=== PATIENT | male | born 1950 | race Caucasian/White ===

== ENCOUNTER 2023-01-28 14:21 | Outpatient (CLI) | payer MEDICARE, BC ==
[2023-01-28 15:10] VITALS: BP 124/60
--- NOTE | 2023-01-28 15:10 | SLEEP CARE CONSULTATION ---
Information from patient questionnaire entered by Crsitobal Teixeira. I have reviewed and concur with the information entered by Cristobal Teixeira. This document represents the service I personally performed and the decisions made by me, Klaudia Pedroza ARNP. History of Present Illness Service Date and Time: 01/28/2023 1421 Reason for Visit: New patient, sleep apnea on CPAP therapy Chief Complaint: reports: Observed pauses in breathing, Other (TRANSFER ) Usual bedtime: 11PM Time it takes to fall asleep: 5MIN Snores at night: Yes Observed to quit breathing while asleep: Yes Sleeps alone due to snoring: No Number of times waking at night: 1-2 Reasons for waking at night: reports: Bathroom Toss, Turn, or Twitch while sleeping: Yes Recalls having dreams: Yes Usually gets out of bed at: 7AM Feels refreshed in the morning: Yes Morning headache: No Sleepy or fatigued during the day: No Ever fallen asleep while driving: No Takes day naps: No Dreams during day naps: No Prior sleep studies: Yes ([facility] ) Year and Where: 2019 Type of Sleep Study: Polysomnography Additional HPI information: CHARLEEN CERON was previously diagnosed to have mild, AHI 10.9, obstructive sleep apnea-hypopnea syndrome at [facility] in 2019 and comes in today to establish care for CPAP therapy. - Parasomnia Symptoms Ever been unable to move upon waking from sleep: No Walks in sleep: No Talks in sleep: No Ever acted out dreams in sleep: No Ever felt weak in the knees when startled or emotional: No Bothered by creepy, crawly, restless sensations in legs: No Problems with memory or concentration: Yes CPAP Compliance Data - Data Reviewed with Patient Average duration of nightly device use: 6 hours 56 minutes Compliance rate %: 100 (30/30 days used) Current pressure setting (cmH2O): 5-15 (median 8.1, avg 11.8, max 13.8) Average residual AHI: 10.2 Central apnea: 6.0 Obstructive apnea: 2.8 Compliance data discussion: He has a Resmed Airsense 10 CPAP machine setup on 05/2020. He has been getting his supplies from [employer], [employer]. He is using a full face mask, a Resmed Airfit F30i. Subjective Patient concerns: reports: dry mouth, nose, throat (dry mouth when oral venting on back). denies: aerophagia, mask discomfort, air blowing in eyes, mask leak noise, condensation in mask/hose, nasal congestion, epistaxis Observed to snore while using device: No Current pressure setting perceived as: comfortable On therapy, patient: reports: sleeping better, awakening more refreshed, being more awake and alert during the day, more rested overall. denies: drowsiness while driving Initial [place] Sleepiness Scale score: 7 (01/28/23) Past Medical History Past Medical History: reports: Other (ARTHEROSCLEROCIC HEART DISEASE- ASYMPTOMATIC ) Social History The patient's occupation is a RE. Patient is and lives in [place]. Have you smoked in the past 12 months: No Alcohol use: No Caffeine use: Yes Caffeine amount and frequency: 16-24OZS DAILY Family History Family history of sleep disordered breathing: No Family Hx Sleep Apnea: Other: Snoring (), Sleep apnea - Treated () Allergies and Home Medications Known drug allergies: No Drug allergies reviewed: Yes Home medication list reviewed: Yes (Rosuvastatin 20 mg daily; Aspirin 81 mg daily) Review of Systems Cardiovascular: denies: high blood pressure Gastrointestinal: denies: heartburn Urinary: reports: frequency, urgency Neurological: denies: headaches Psychiatric: denies: anxiety, depression Ear/Nose/Throat: denies: tonsillectomy Endocrine: reports: increased urination. denies: thyroid disease Physical Exam Vital signs obtained and entered by: CRISTOBAL Maldonado MA Blood Pressure: 124/60 (LEFT ARM) Cuff size: regular Heart Rate: 68 O2 Saturation: 97 Height: 5 ft 10 in Weight: 200 lb Body Mass Index: 28.7 BMI Classification: Overweight Neck circumference: 16 Heart: regular rate and rhythm Lungs: clear bilaterally Impression and Plan 1. Obstructive Sleep Apnea-Hypopnea Syndrome, mild, with good treatment compliance and good apnea control. On CPAP therapy, the patient has better sleep quality and is more rested overall. Patient's residual AHI is elevated with the bulk of events noted in central apneas. I will adjust his pressure settings to see if we can get a better control of his residual AHI. The patients pressure will be changed to autoCPAP 8-10 cmH20 for elevation of residual AHI. I will follow up with him in 1-2 months. Patient advised to contact me if pressure change is uncomfortable so that it can be adjusted. Goals for apnea control discussed. Patient's apnea severity and rationale for treatment to reduce apnea, improve sleep quality and reduce cardiovascular and cerebrovascular events was reviewed. I also reviewed the benefit of consistent device use of CPAP for cardiac disease. * Change auto CPAP pressure to 8-10 cmH2O * Update supplies * Notify me if snoring with mask or feeling that the pressure is too much or too little * Attempt to lose weight * Call this office if any problems using CPAP * Return for follow up in 1-2 months, or sooner if concerns arise Counseling Topics: Spare mask, Weight loss health impact Visit Type: In Office Time Spent with Patient (minutes): 36 Provider Statement: I spent 100% of the Face to Face Visit with the patient with greater than 50% spent counseling the patient and coordination of care.
== END 2023-01-28 14:22 | disposition home or self-care (01) ==
LOC: SC 14:21
PROVIDERS: ATTEND Nurse Practitioner Family
DX: G47.33 Obstructive sleep apnea (adult) (pediatric) (principal); E66.3 Overweight; Z68.28 Body mass index [BMI] 28.0-28.9, adult
CPT/HCPCS: 99203; G0463; 99212

== ENCOUNTER 2023-04-07 13:51 | Outpatient (CLI) | payer MEDICARE, BC ==
--- NOTE | 2023-04-07 14:07 | Sleep Patient Instructions ---
Sleep Center Visit Summary - Patient Visit Information Reason for Visit: Two month follow up for CPAP therapy - Patient Instructions Additional Instructions: You were here for follow up of CPAP therapy. You will be continued on CPAP therapy with pressure at 8-10 cmH2O. Please let us know if the pressure change is uncomfortable and we can make further adjustments of the pressure. Your machine will be serviced to determine cause of it shutting off during the night. You should follow up with sleep care in 3 months. You may contact us sooner for any questions or concerns. - Clinic Information Contact: [facility] [address] [place] [address] [email or web address] T: [phone]
[2023-04-07 14:28] VITALS: BP 108/60
--- NOTE | 2023-04-07 14:28 | SLEEP CARE CONSULTATION ---
Information from patient questionnaire entered by Cristobal Teixeira. I have reviewed and concur with the information entered by Cristobal Teixeira. This document represents the service I personally performed and the decisions made by , Klaudia Pedroza ARNP. History of Present Illness Service Date and Time: 04/07/2023 1351 Previous diagnosis: Mild, Obstructive Sleep Apnea-Hypopnea Syndrome AHI: 10.9 (in 2019) Reason for follow up: other (2 MONTH F/U) Equipment type: CPAP (RESMED Airsense 10; s/u 05/2020) Equipment obtained from: [employer] (getting supplies) Mask style: Full face Backup mask available: No (will keep old mask when replaced) Last cushion change: 1 month Prior sleep studies: Yes ([facility] ) and Where: 2019 Type of Sleep Study: Polysomnography HPI additional information: CHARLEEN CERON was diagnosed to have mild, AHI 10.9, obstructive sleep apnea- hypopnea syndrome and returned today for CPAP therapy two months follow-up. Sleep Study - Results Type of Sleep Study: Polysomnography Prior sleep studies: Yes ([facility] ) Year and Where: 2019 CPAP Compliance Data - Data Reviewed with Patient Average duration of nightly device use: 6 HRS 14 MIN Compliance rate %: 100 (02/05/23-04/05/23) Current pressure setting (cmH2O): 8-10 Average residual AHI: 6.8 Central apnea: 3.5 Obstructive apnea: 1.8 Average large leak: 8.9 L/min Subjective Patient concerns: denies: aerophagia, mask discomfort, air blowing in eyes, mask leak noise, condensation in mask/hose, nasal congestion, dry mouth, nose, throat, epistaxis Observed to snore while using device: No Current pressure setting perceived as: too low On therapy, patient: reports: sleeping better, awakening more refreshed, being more awake and alert during the day, more rested overall. denies: drowsiness while driving Initial [place] Sleepiness Scale score: 7 (01/28/23) Current [place] Sleepiness Scale score: 6 (04/07/23) Allergies and Home Medications Known drug allergies: No Drug allergies reviewed: Yes Home medication list reviewed: Yes (no changes) Allergy and home medication list: Allergies No Known Drug Allergies Allergy (Verified 04/06/23 09:26) Review of Systems Review of systems same as previous: Yes (restless legs occasionally reoccurred) Physical Exam Vital signs obtained and entered by: CRISTOBAL Maldonado MA Blood Pressure: 108/60 (LEFT ARM) Cuff size: regular Heart Rate: 62 O2 Saturation: 98 Height: 5 ft 10 in Weight: 195 lb Body Mass Index: 27.9 BMI Classification: Overweight Impression and Plan 1. Obstructive Sleep Apnea-Hypopnea Syndrome, mild, with good treatment compliance and fair apnea control with mild elevation of residual AHI. On CPAP therapy, the patient has better sleep quality and is more rested overall. His residual AHI includes 3.5 CA and 1.8 OA. He states he feels that occasionally the pressure is too low and would like the pressure increased. I explained to him that the AHI is better controlled at the lower pressure and he was okay with leaving it at current pressures. Patient advised to contact me if pressure is uncomfortable so that it can be adjusted. Goals for apnea control discussed. Patient also tells me that his CPAP will shut off during the night and he will wake up unable to breathe in mask. He states it just started doing this and he knows he did not turn it off. I will have the machine serviced to check on why it would be turning off on it's own. He voiced agreement with plan of care. Patient's apnea severity and rationale for treatment to reduce apnea, improve sleep quality and reduce cardiovascular and cerebrovascular events was reviewed. I also reviewed the benefit of consistent device use of CPAP for cardiac disease. 2. Overweight, unspecified. Currently patients BMI is 27.9. Obesity increases the risk of apnea, CPAP pressure requirements and overall health risks especially cardiovascular and diabetes. Thus patient is advised to lose weight. * Continue auto CPAP pressure at 8-10 cmH2O * Service Machine; shutting off during night on own * Notify me if snoring with mask or feeling that the pressure is too much or too little * Attempt to lose weight * Call this office if any problems using CPAP * Return for follow up in 3 months, or sooner if concerns arise Counseling Topics: Spare mask, Weight loss health impact Prescriptions: Other (machine servicing for turning off on own) Visit Type: In Office Time Spent with Patient (minutes): 20 Provider Statement: I spent 100% of the Face to Face Visit with the patient with greater than 50% spent counseling the patient and coordination of care.
== END 2023-04-07 13:52 | disposition home or self-care (01) ==
LOC: SC 13:51
PROVIDERS: ATTEND Nurse Practitioner Family
DX: G47.33 Obstructive sleep apnea (adult) (pediatric) (principal); E66.3 Overweight; Z68.27 Body mass index [BMI] 27.0-27.9, adult
CPT/HCPCS: 99213; G0463; 99212

== ENCOUNTER 2023-07-01 13:03 | Outpatient (CLI) | payer MEDICARE, BC ==
[2023-07-01 13:42] VITALS: BP 110/60; O2SAT 98
--- NOTE | 2023-07-01 13:43 | SLEEP CARE CONSULTATION ---
Information from patient questionnaire entered by Cristobal Teixeira. I have reviewed and concur with the information entered by Cristobal Teixeira. This document represents the service I personally performed and the decisions made by , Klaudia Pedroza ARNP. History of Present Illness Service Date and Time: 07/01/2023 1303 Previous diagnosis: Mild, Obstructive Sleep Apnea-Hypopnea Syndrome AHI: 10.9 (in 2019) Reason for follow up: three month (F/U) Equipment type: CPAP (RESMED Airsense 10 s/u 05/2020) Equipment obtained from: [employer] (getting supplies) Mask style: Full face Backup mask available: Yes (old mask) Last cushion change: last month Prior sleep studies: Yes ([facility] ) and Where: 2019 Type of Sleep Study: Polysomnography HPI additional information: CHARLEEN CERON was diagnosed to have mild, AHI 10.9, obstructive sleep apnea- hypopnea syndrome and returned today for CPAP therapy three month follow-up. Sleep Study - Results Type of Sleep Study: Polysomnography Prior sleep studies: Yes ([facility] ) Year and Where: 2019 CPAP Compliance Data - Data Reviewed with Patient Average duration of nightly device use: 5 HRS 53 MIN Compliance rate %: 99 (03/18/23-06/15/23; 90/90 days used) Current pressure setting (cmH2O): 8-10 Average residual AHI: 7.8 Central apnea: 3.3 Obstructive apnea: 2.5 Hypopnea: 1.2 Average large leak: 12.5 L/min Subjective Patient concerns: reports: other (pressure pulsating and unable to use CPAP ). denies: aerophagia, mask discomfort, air blowing in eyes, mask leak noise, condensation in mask/hose, nasal congestion, dry mouth, nose, throat, epistaxis Observed to snore while using device: No Current pressure setting perceived as: comfortable On therapy, patient: reports: sleeping better, awakening more refreshed, being more awake and alert during the day, more rested overall. denies: drowsiness while driving Initial [place] Sleepiness Scale score: 7 (01/28/23) Current [place] Sleepiness Scale score: 7 (07/01/23) Allergies and Home Medications Known drug allergies: No Drug allergies reviewed: Yes Home medication list reviewed: Yes (no changes) Allergy and home medication list: Allergies No Known Drug Allergies Allergy (Verified 06/30/23 09:22) Review of Systems Review of systems same as previous: Yes (no changes) Physical Exam Vital signs obtained and entered by: CRISTOBAL Maldonado MA Blood Pressure: 110/60 (LEFT ARM) Cuff size: regular Heart Rate: 85 O2 Saturation: 98 Height: 5 ft 10 in Weight: 192 lb 6.4 oz Body Mass Index: 27.6 BMI Classification: Overweight Impression and Plan 1. Obstructive Sleep Apnea-Hypopnea Syndrome, mild, with good treatment complia nce and fair apnea control with elevated residual AHI. On CPAP therapy, the patient has better sleep quality and is more rested overall. He states he has not been able to use his machine since getting back from vacation. It was working fine on vacation but when he plugged it in at home the pressure feels like it is pulsating and it is very uncomfortable and he is unable to wear the mask. This has only happened within the last 2 nights. I will have it serviced to see if there is a problem with the machine through his [employer] company. Patient continues to have elevated residual AHI, central index at 3.3, hypopnea 1.2 and obstructive index at 2.5. I would like to get him in for a titration study and he agreed to the plan. I will try to get authorization for a titration study and follow-up with him after that study is completed. He will update us on the progress of him getting his machine serviced. Patient's apnea severity and rationale for treatment to reduce apnea, improve sleep quality and reduce cardiovascular and cerebrovascular events was reviewed. I also reviewed the benefit of consistent device use of CPAP for cardiac disease. 2. Overweight, unspecified. Currently patients BMI is 27.6. Obesity increases the risk of apnea, CPAP pressure requirements and overall health risks especially cardiovascular and diabetes. Thus patient is advised to lose weight. * Continue auto CPAP pressure at 8-10 cmH2O * Service CPAP machine * Titration study * Notify me if snoring with mask or feeling that the pressure is too much or too little * Attempt to lose weight * Call this office if any problems using CPAP * Return for follow up after titration study, or sooner if concerns arise Counseling Topics: Spare mask, Weight loss health impact Visit Type: In Office Time Spent with Patient (minutes): 20 Provider Statement: I spent 100% of the Face to Face Visit with the patient with greater than 50% spent counseling the patient and coordination of care.
== END 2023-07-01 13:04 | disposition home or self-care (01) ==
LOC: SC 13:03
PROVIDERS: ATTEND Nurse Practitioner Family
DX: G47.33 Obstructive sleep apnea (adult) (pediatric) (principal); E66.3 Overweight; Z68.27 Body mass index [BMI] 27.0-27.9, adult
CPT/HCPCS: 99213; G0463; 99212

== ENCOUNTER 2023-08-05 20:31 | Outpatient (CLI) | payer MEDICARE, BC | END 2023-08-05 20:32 | disposition home or self-care (01) | LOC: SC 20:31 | PROVIDERS: ATTEND Nurse Practitioner Family | DX: G47.30 Sleep apnea, unspecified (principal); G47.61 Periodic limb movement disorder | CPT/HCPCS: 95811 ==

== ENCOUNTER 2023-09-09 10:12 | Outpatient (CLI) | payer MEDICARE, BC ==
--- NOTE | 2023-09-09 10:09 | SLEEP CARE CONSULTATION ---
Information from patient questionnaire entered by Erum Teixeira. I have reviewed and concur with the information entered by Erum Teixeira. This document represents the service I personally performed and the decisions made by , Klaudia Pedroza ARNP. History of Present Illness Service Date and Time: 09/09/2023 1000 Previous diagnosis: Mild, Obstructive Sleep Apnea-Hypopnea Syndrome AHI: 10.9 (in 2019) Reason for follow up: other (F/U Titration) Equipment type: CPAP (RESMED Airsense 10 s/u 05/2020) Equipment obtained from: [employer] (getting supplies) Mask style: Nasal Prior sleep studies: Yes ([facility] ) Year and Where: 2019 Type of Sleep Study: Polysomnography HPI additional information: CHARLEEN CERON returns via video telehealth visit for follow up of the sleep study with a manual CPAP titration study performed on 08/05/2023. The patient was informed of the following polysomnography findings: CPAP was initiated at 7 cmH2O and titrated up to CPAP at 14 cmH2O. CPAP at 13 cmH2O appeared to be optimal (AHI of 0 per hour on the pressure). There was supine REM sleep on the pressure. Oxygen saturation was normal throughout the night. Lower CPAP settings allowed frequent residual respiratory events. The patient appeared to have tolerated positive airway pressure therapy fairly well. There was severe periodic leg movement of sleep contributing to the sleep fragmentation. Sleep Study - Results Type of Sleep Study: Polysomnography Prior sleep studies: Yes ([facility] ) and Where: 2019 Polysomnography/Home Sleep Study results: IMPRESSION: The quality of the study is good. CPAP was initiated at 7 cmH2O and titrated up to CPAP at 14 cmH2O. CPAP at 13 cmH2O appeared to be optimal (AHI of 0 per hour on the pressure). There was supine REM sleep on the pressure. Oxygen saturation was normal throughout the night. Lower CPAP settings allowed frequent residual respiratory events. The patient appeared to have tolerated positive airway pressure therapy fairly well. The patients sleep efficiency was minimally reduced. The sleep architecture was abnormal for sleep fragmentation and lack of slow wave sleep (N3). There was severe periodic leg movement of sleep contributing to the sleep fragmentation. Cardiac rhythm was normal sinus rhythm without significant arrhythmia. No abnormal behavior (parasomnia) observed during the night. CPAP Compliance Data - Data Reviewed with Patient Average duration of nightly device use: 5 HRS 50 MINS Compliance rate %: 92 (06/09/23-09/06/23) Current pressure setting (cmH2O): 8-10 Average residual AHI: 10.6 Central apnea: 3.6 Obstructive apnea: 3 Hypopnea: 1.4 Average large leak: 11.2 L/min Subjective Patient concerns: denies: aerophagia, mask discomfort, air blowing in eyes, mask leak noise, condensation in mask/hose, nasal congestion, dry mouth, nose, throat, epistaxis Observed to snore while using device: No Current pressure setting perceived as: comfortable On therapy, patient: reports: sleeping better, more rested overall. denies: drowsiness while driving Initial [place] Sleepiness Scale score: 7 (01/28/23) Current [place] Sleepiness Scale score: 9 (09/09/23) Allergies and Home Medications Known drug allergies: No Drug allergies reviewed: Yes Home medication list reviewed: Yes (no changes) Allergy and home medication list: Allergies No Known Drug Allergies Allergy (Verified 09/08/23 12:30) Review of Systems Review of systems same as previous: Yes (NO CHANGE) Physical Exam Vital signs obtained and entered by: ERUM Maldonado MA Height: 5 ft 10 in (PER PT) Weight: 190 lb (PER PT) Body Mass Index: 27.2 BMI Classification: Overweight Impression and Plan 1. Obstructive Sleep Apnea-Hypopnea Syndrome, mild. He returns after titration study showing optimal AHI control with pressure setting 13 cmH2O. He appeared to tolerate pressure well during the sleep study. The patients pressure will be changed to autoCPAP 13 cmH20 to reflect study findings. Patient advised to contact me if pressure change is uncomfortable so that it can be adjusted. Goals for apnea control discussed. He was fitted to a full face mask during the titration study and he liked it. He has been using a Wisp mask. He will let me know if he wants to change to full face mask after he returns from an [place] cruise in a few weeks. Patient's apnea severity and rationale for treatment to reduce apnea, improve sleep quality and reduce cardiovascular and cerebrovascular events was reviewed. I also reviewed the benefit of consistent device use of CPAP for cardiac disease. 2. Periodic limb movement, severe, that did fragment patients sleep. Periodic limb movement of sleep (PLMS) is characterized by episodes of repetitive limb movements that occur during sleep and usually involve the lower limbs. The etiology is unknown but can be associated with restless leg syndrome (RLS), neuropathy, spinal cord diseases, kidney disease, rheumatological disorders, narcolepsy, obstructive sleep apnea, and REM sleep behavior disorder. Caffeine can also aggravate PLMS and should be avoided. Sleep hygiene methods can also improve sleep as well as lifestyle changes such as regular exercise. Patient was advised that no treatment is needed at this time. If symptoms increase, then further evaluation is indicated. 3. Overweight, unspecified. Currently patients BMI is 27.2. Obesity increases the risk of apnea, CPAP pressure requirements and overall health risks especially cardiovascular and diabetes. Thus patient is advised to continue to try to lose weight. * Change CPAP pressure to 13 cmH2O * Notify me if snoring with mask or feeling that the pressure is too much or too little * Attempt to lose weight * Call this office if any problems using CPAP * Return for follow up in 1-2 months, or sooner if concerns arise Counseling Topics: Weight loss health impact Follow up with Sleep Care in: 1-2 months Visit Type: Telehealth Video Video Type: Radhames Patient Location: Home Location of Provider: Office Patient agrees and consents to this telehealth visit type: Yes Patient agrees to have their insurance billed: Yes Time Spent with Patient (minutes): 16 Provider Statement: I spent 100% of the Telehealth Video Call with the patient with greater than 50% spent counseling the patient and coordination of care.
== END 2023-09-09 10:13 | disposition home or self-care (01) ==
LOC: SC 10:12
PROVIDERS: ATTEND Nurse Practitioner Family
DX: G47.33 Obstructive sleep apnea (adult) (pediatric) (principal); G47.61 Periodic limb movement disorder; E66.3 Overweight; Z68.27 Body mass index [BMI] 27.0-27.9, adult

== ENCOUNTER 2023-10-21 09:59 | Outpatient (CLI) | payer MEDICARE, BC ==
--- NOTE | 2023-10-21 10:38 | Sleep Patient Instructions ---
Sleep Center Visit Summary - Patient Visit Information Reason for Visit: 6 week followup for PAP therapy - Patient Instructions Additional Instructions: You were here for follow up of CPAP therapy. You will be continued on CPAP therapy with pressure at 10-12 cmH2O. Please let us know if the pressure change is uncomfortable and we can make further adjustments of the pressure. You should follow up with sleep care in 1-2 months. You may contact us sooner for any questions or concerns. - Clinic Information Contact: [facility] [address] [place] [address] [email or web address] T: [phone]
--- NOTE | 2023-10-21 10:42 | SLEEP CARE CONSULTATION ---
Information from patient questionnaire entered by Cristobal Teixeira. I have reviewed and concur with the information entered by Cristobal Teixeira. This document represents the service I personally performed and the decisions made by , Klaudia Pedroza ARNP. History of Present Illness Service Date and Time: 10/21/2023 0959 Previous diagnosis: Mild, Obstructive Sleep Apnea-Hypopnea Syndrome AHI: 10.9 (in 2019) Reason for follow up: other (SIX WEEK F/U) Equipment type: CPAP (RESMED Airsense 10 s/u 05/2020) Equipment obtained from: [employer] (getting supplies) Mask style: Nasal Mask brand: Resmed (AirFit F30i) Backup mask available: No Last cushion change: 1 month Prior sleep studies: Yes ([facility] ) and Where: 2019 Type of Sleep Study: Polysomnography HPI additional information: CHARLEEN CERON was diagnosed to have mild, AHI 10.9, obstructive sleep apnea- hypopnea syndrome and returned today for CPAP therapy six week with pressure change follow-up. Sleep Study - Results Type of Sleep Study: Polysomnography Prior sleep studies: Yes ([facility] ) Year and Where: 2019 CPAP Compliance Data - Data Reviewed with Patient Average duration of nightly device use: 6 HRS 35 MINS Compliance rate %: 100 (09/19/23-10/18/23; days used) Current pressure setting (cmH2O): 13 Average residual AHI: 7.9 Central apnea: 3.1 Obstructive apnea: 2.4 Hypopnea: 1.5 Average large leak: 11.8 L/min Subjective Patient concerns: reports: dry mouth, nose, throat (little bit). denies: aerophagia, mask discomfort, air blowing in eyes, mask leak noise, condensation in mask/hose, nasal congestion, epistaxis Observed to snore while using device: No Current pressure setting perceived as: too high On therapy, patient: reports: sleeping better, awakening more refreshed, being more awake and alert during the day, more rested overall. denies: drowsiness while driving Initial [place] Sleepiness Scale score: 7 (01/28/23) Current [place] Sleepiness Scale score: 10 (10/21/23) Allergies and Home Medications Known drug allergies: No Drug allergies reviewed: Yes Home medication list reviewed: Yes (no changes) Allergy and home medication list: Allergies No Known Drug Allergies Allergy (Verified 10/20/23 13:09) Review of Systems Review of systems same as previous: Yes (NO CHANGES) Physical Exam Vital signs obtained and entered by: CRISTOBAL Maldonado MA Blood Pressure: 128/68 (LEFT ARM) Cuff size: regular Heart Rate: 67 O2 Saturation: 98 Height: 5 ft 10 in (PER PT) Weight: 204 lb 12.8 oz Body Mass Index: 29.3 BMI Classification: Overweight Impression and Plan 1. Obstructive Sleep Apnea-Hypopnea Syndrome, mild, with good treatment compliance and fair apnea control with mild elevation of residual AHI. On CPAP therapy, the patient has better sleep quality and is more rested overall. The pressure change at his last visit did reduce his residual AHI to 7.9 but it is still mildly elevated. He also feels like the pressure is too high at times. The patients pressure will be changed to autoCPAP 10-12 cmH20 for elevation of residual AHI and patient comfort. Patient advised to contact me if pressure change is uncomfortable so that it can be adjusted. Goals for apnea control discussed. Patient's apnea severity and rationale for treatment to reduce apnea, improve sleep quality and reduce cardiovascular and cerebrovascular events was reviewed. I also reviewed the benefit of consistent device use of CPAP for cardiac disease. 2. Overweight, unspecified. Currently patients BMI is 29.3. Obesity increases the risk of apnea, CPAP pressure requirements and overall health risks especially cardiovascular and diabetes. Thus patient is advised to lose weight. * Change auto CPAP pressure to 10-12 cmH2O * Notify me if snoring with mask or feeling that the pressure is too much or too little * Attempt to lose weight * Call this office if any problems using CPAP * Return for follow up in 1-2 months, or sooner if concerns arise Counseling Topics: Spare mask, Weight loss health impact Follow up with Sleep Care in: 1-2 months Visit Type: In Office Time Spent with Patient (minutes): 20 Provider Statement: I spent 100% of the Face to Face Visit with the patient with greater than 50% spent counseling the patient and coordination of care.
[2023-10-21 10:43] VITALS: BP 128/68; O2SAT 98
== END 2023-10-21 10:00 | disposition home or self-care (01) ==
LOC: SC 09:59
PROVIDERS: ATTEND Nurse Practitioner Family
DX: G47.33 Obstructive sleep apnea (adult) (pediatric) (principal); E66.3 Overweight; Z68.29 Body mass index [BMI] 29.0-29.9, adult
CPT/HCPCS: 99213; G0463; 99212

== ENCOUNTER 2023-12-16 09:42 | Outpatient (CLI) | payer MEDICARE, BC ==
--- NOTE | 2023-12-16 10:04 | Sleep Patient Instructions ---
Sleep Center Visit Summary - Patient Visit Information Reason for Visit: 2-month follow-up - Patient Instructions Additional Instructions: You were here for follow up of CPAP therapy. You will be continued on CPAP therapy with pressure at 11-12.6 cmH2O. Please let us know if the pressure change is uncomfortable and we can make further adjustments of the pressure. You should follow up with sleep care in 1-2 months. You may contact us sooner for any questions or concerns. - Clinic Information Contact: [facility] [address] [place] [address] [email or web address] T: [phone]
--- NOTE | 2023-12-16 10:07 | SLEEP CARE CONSULTATION ---
Information from patient questionnaire entered by Cristobal Teixeira. I have reviewed and concur with the information entered by Cristobal Teixeira. This document represents the service I personally performed and the decisions made by , Klaudia Pedroza ARNP. History of Present Illness Service Date and Time: 12/16/2023 09 Previous diagnosis: Mild, Obstructive Sleep Apnea-Hypopnea Syndrome AHI: 10.9 (in 2019) Reason for follow up: other (2 MONTH F/U) Equipment type: CPAP (RESMED Airsense 10 s/u 05/2020) Equipment obtained from: [employer] (getting supplies) Mask style: Full face Backup mask available: Yes Last cushion change: last month Prior sleep studies: Yes ([facility] ) and Where: 2019 Type of Sleep Study: Polysomnography HPI additional information: CHARLEEN CERON was diagnosed to have mild, AHI 10.9, obstructive sleep apnea- hypopnea syndrome and returned today for CPAP therapy two month with pressure change follow-up. Sleep Study - Results Type of Sleep Study: Polysomnography Prior sleep studies: Yes ([facility] ) Year and Where: 2019 CPAP Compliance Data - Data Reviewed with Patient Average duration of nightly device use: 6 HRS 57 MINS Compliance rate %: 100 (10/21/23-12/13/23; 54/54 days used) Current pressure setting (cmH2O): 10-12 (median 10.6, avg 11.8, max 11.9) Average residual AHI: 8.5 Central apnea: 3.7 Obstructive apnea: 2.9 Hypopnea: 1.6 Average large leak: 5.1 L/min Subjective Patient concerns: denies: aerophagia, mask discomfort, air blowing in eyes, mask leak noise, condensation in mask/hose, nasal congestion, dry mouth, nose, throat, epistaxis Observed to snore while using device: No Current pressure setting perceived as: comfortable On therapy, patient: reports: sleeping better, awakening more refreshed, being more awake and alert during the day, more rested overall. denies: drowsiness while driving Initial [place] Sleepiness Scale score: 7 (01/28/23) Current [place] Sleepiness Scale score: 11 (12/16/23) Allergies and Home Medications Known drug allergies: No Drug allergies reviewed: Yes Home medication list reviewed: Yes (no changes) Allergy and home medication list: Allergies No Known Drug Allergies Allergy (Verified 12/14/23 11:47) Review of Systems Review of systems same as previous: Yes (no changes) Physical Exam Vital signs obtained and entered by: CRISTOBAL Maldonado MA Blood Pressure: 143/78 (RIGHT ARM) Cuff size: regular Heart Rate: 60 O2 Saturation: 98 Height: 5 ft 10 in (PER PT) Weight: 202 lb 6.4 oz Body Mass Index: 29.0 BMI Classification: Overweight Impression and Plan 1. Obstructive Sleep Apnea-Hypopnea Syndrome, mild, with good treatment compliance and fair apnea control with elevated residual AHI. On CPAP therapy, the patient has better sleep quality and is more rested overall. He has significant improvement of his sleep apnea but the pressure is currently suboptimal. The patients pressure will be changed to autoCPAP 11-12.6 cmH20 for elevation of residual AHI. Patient advised to contact me if pressure change is uncomfortable so that it can be adjusted. Goals for apnea control discussed. Patient's apnea severity and rationale for treatment to reduce apnea, improve sleep quality and reduce cardiovascular and cerebrovascular events was reviewed. I also reviewed the benefit of consistent device use of CPAP for cardiac disease. 2. Overweight, unspecified. Currently patients BMI is 29. Obesity increases the risk of apnea, CPAP pressure requirements and overall health risks especially cardiovascular and diabetes. Thus patient is advised to lose weight. * Change auto CPAP pressure to 11-12.6 cmH2O * Notify me if snoring with mask or feeling that the pressure is too much or too little * Attempt to lose weight * Call this office if any problems using CPAP * Return for follow up in 1-2 months, or sooner if concerns arise Adjust device pressure to (cmH2O): 11-12.6 Counseling Topics: Spare mask, Weight loss health impact Follow up with Sleep Care in: 1-2 months Visit Type: In Office Time Spent with Patient (minutes): 20 Provider Statement: I spent 100% of the Face to Face Visit with the patient with greater than 50% spent counseling the patient and coordination of care.
[2023-12-16 10:16] VITALS: BP 143/78; O2SAT 98
== END 2023-12-16 09:43 | disposition home or self-care (01) ==
LOC: SC 09:42
PROVIDERS: ATTEND Nurse Practitioner Family
DX: G47.33 Obstructive sleep apnea (adult) (pediatric) (principal); E66.3 Overweight; Z68.29 Body mass index [BMI] 29.0-29.9, adult
CPT/HCPCS: 99212; 99213

== ENCOUNTER 2024-02-10 09:47 | Outpatient (CLI) | payer MEDICARE, BC ==
--- NOTE | 2024-02-10 10:07 | Sleep Patient Instructions ---
Sleep Center Visit Summary - Patient Visit Information Reason for Visit: 2 month follow up - Patient Instructions Additional Instructions: You were here for follow up of CPAP therapy. You will be continued on CPAP therapy with pressure at 11-12.6 cmH2O. You should follow up with sleep care in 3 months. You may contact us sooner for any questions or concerns. - Clinic Information Contact: [facility] [address] [place] [address] [email or web address] T: [phone]
--- NOTE | 2024-02-10 10:13 | SLEEP CARE CONSULTATION ---
Information from patient questionnaire entered by Cristobal Teixeira. I have reviewed and concur with the information entered by Cristobal Teixeira. This document represents the service I personally performed and the decisions made by , Klaudia Pedroza ARNP. History of Present Illness Service Date and Time: 02/10/2024 0947 Previous diagnosis: Mild, Obstructive Sleep Apnea-Hypopnea Syndrome AHI: 10.9 (in 2019) Reason for follow up: other (2 M ONTH F/U) Equipment type: CPAP (RESMED Airsense 10 s/u 05/2020) Equipment obtained from: [employer] ([employer]) Mask style: Full face Mask brand: Resmed (AirFit F30i) Backup mask available: Yes Last cushion change: 1 month Prior sleep studies: Yes ([facility] ) and Where: 2019 Type of Sleep Study: Polysomnography HPI additional information: CHARLEEN CERON was diagnosed to have mild, AHI 10.9, obstructive sleep apnea- hypopnea syndrome and returned today for CPAP therapy two month follow-up. Sleep Study - Results Type of Sleep Study: Polysomnography Prior sleep studies: Yes ([facility] ) Year and Where: 2019 CPAP Compliance Data - Data Reviewed with Patient Average duration of nightly device use: 6 HRS 52 MINS Compliance rate %: 98 (12/10/23-02/07/24; 59/60 days used) Current pressure setting (cmH2O): 11-12.6 Average residual AHI: 7.3 Central apnea: 3.1 Obstructive apnea: 2.6 Hypopnea: 1.4 Average large leak: 4.5 L/min Subjective Patient concerns: denies: aerophagia, mask discomfort, air blowing in eyes, mask leak noise, condensation in mask/hose, nasal congestion, dry mouth, nose, throat, epistaxis Observed to snore while using device: No Current pressure setting perceived as: comfortable On therapy, patient: reports: sleeping better, awakening more refreshed, being more awake and alert during the day, more rested overall. denies: drowsiness while driving Initial [place] Sleepiness Scale score: 7 (01/28/23) Current [place] Sleepiness Scale score: 7 (02/10/24) Allergies and Home Medications Known drug allergies: No Drug allergies reviewed: Yes Home medication list reviewed: Yes (no changes) Allergy and home medication list: Allergies No Known Drug Allergies Allergy (Verified 02/08/24 09:12) Review of Systems Review of systems same as previous: Yes (NO CHANGE) Physical Exam Vital signs obtained and entered by: CRISTOBAL Maldonado MA Blood Pressure: 139/80 (LEFT ARM) Cuff size: regular Heart Rate: 68 O2 Saturation: 99 Height: 5 ft 10 in (PER PT) Weight: 202 lb 9.6 oz Body Mass Index: 29.0 BMI Classification: Overweight Impression and Plan 1. Obstructive Sleep Apnea-Hypopnea Syndrome, mild, with good treatment compliance and fair apnea control with elevated residual AHI. On CPAP therapy, the patient has better sleep quality and is more rested overall. Current pressure settings are slightly ineffective but overall patient has significant improvement of his sleep apnea and he feels he is sleeping well. He says he is getting a good mask seal according to the machine although his average large leak is high. This is the best control of his AHI with current pressure settings. I will have him continue at 11-12.6 cmH2O and follow up with him in 3 months. Patient's apnea severity and rationale for treatment to reduce apnea, improve sleep quality and reduce cardiovascular and cerebrovascular events was reviewed. I also reviewed the benefit of consistent device use of CPAP for cardiac disease. 2. Overweight, unspecified. Currently patients BMI is 29. Obesity increases the risk of apnea, CPAP pressure requirements and overall health risks especially cardiovascular and diabetes. Thus patient is advised to lose weight. * Continue auto CPAP pressure at 11-12.6 cmH2O * Notify me if snoring with mask or feeling that the pressure is too much or too little * Attempt to lose weight * Call this office if any problems using CPAP * Return for follow up in 3 months, or sooner if concerns arise Counseling Topics: Spare mask, Weight loss health impact Follow up with Sleep Care in: 3 months Visit Type: In Office Time Spent with Patient (minutes): 20 Provider Statement: I spent 100% of the Face to Face Visit with the patient with greater than 50% spent counseling the patient and coordination of care.
[2024-02-10 10:22] VITALS: BP 139/80; O2SAT 99
== END 2024-02-10 09:48 | disposition home or self-care (01) ==
LOC: SC 09:47
PROVIDERS: ATTEND Nurse Practitioner Family
DX: G47.33 Obstructive sleep apnea (adult) (pediatric) (principal); E66.3 Overweight; Z68.29 Body mass index [BMI] 29.0-29.9, adult
CPT/HCPCS: 99213; G0463; 99212

== ENCOUNTER 2024-05-13 13:00 | Outpatient (CLI) | payer MEDICARE, BC ==
--- NOTE | 2024-05-13 13:33 | Sleep Patient Instructions ---
Sleep Center Visit Summary - Patient Visit Information Reason for Visit: 3-month follow-up - Patient Instructions Additional Instructions: You were here for follow up of CPAP therapy. You will be continued on CPAP therapy with pressure at 11-12.6 cmH2O. You should follow up with sleep care in 12 months. You may contact us sooner for any questions or concerns. - Clinic Information Contact: [facility] [address] [place] [id number] [email or web address] T: [phone]
--- NOTE | 2024-05-13 13:37 | SLEEP CARE CONSULTATION ---
Information from patient questionnaire entered by Erum Teixeira. I have reviewed and concur with the information entered by Erum Teixeira. This document represents the service I personally performed and the decisions made by , Klaudia Pedroza ARNP. History of Present Illness Service Date and Time: 05/13/2024 1300 Previous diagnosis: Mild, Obstructive Sleep Apnea-Hypopnea Syndrome AHI: 10.9 (in 2019) Reason for follow up: three month (F/U) Equipment type: CPAP (RESMED Airsense 10 s/u 05/2020) Equipment obtained from: [employer] (getting supplies) Mask style: Full face Mask brand: Resmed (Airfit F30i) Backup mask available: Yes Last cushion change: 1.5 week Prior sleep studies: Yes ([facility] ) and Where: 2019 Type of Sleep Study: Polysomnography HPI additional information: CHARLEEN CERON was diagnosed to have mild, AHI 10.9, obstructive sleep apnea- hypopnea syndrome and returned today for CPAP therapy three month follow-up. Sleep Study - Results Type of Sleep Study: Polysomnography Prior sleep studies: Yes ([facility] ) Year and Where: 2019 CPAP Compliance Data - Data Reviewed with Patient Average duration of nightly device use: 6 HRS 33 MINS Compliance rate %: 100 (02/11/24-05/10/24; 90/90 days used) Current pressure setting (cmH2O): 11-12.6 Average residual AHI: 5.7 Central apnea: 2.1 Obstructive apnea: 2.3 Average large leak: 4.6 L/min Subjective Patient concerns: reports: other (last couple days machine show red face for fit). denies: aerophagia, mask discomfort, air blowing in eyes, mask leak noise, condensation in mask/hose, nasal congestion, dry mouth, nose, throat, epistaxis Observed to snore while using device: No Current pressure setting perceived as: comfortable On therapy, patient: reports: sleeping better, awakening more refreshed, being more awake and alert during the day, more rested overall. denies: drowsiness while driving Initial [place] Sleepiness Scale score: 7 (01/28/23) Current [place] Sleepiness Scale score: 8 (05/13/24) Allergies and Home Medications Known drug allergies: No Drug allergies reviewed: Yes Home medication list reviewed: Yes (no changes) Allergy and home medication list: Allergies No Known Drug Allergies Allergy (Verified 05/11/24 11:15) Review of Systems Review of systems same as previous: Yes (NO CHANGE) Physical Exam Vital signs obtained and entered by: Erica Danielson MA Blood Pressure: 137/67 (LEFT ARM) Cuff size: regular Heart Rate: 62 O2 Saturation: 99 Height: 5 ft 10 in Weight: 194 lb 12.8 oz Weight change since last visit: 8 lb loss Body Mass Index: 27.9 BMI Classification: Overweight Impression and Plan 1. Obstructive Sleep Apnea-Hypopnea Syndrome, mild, with good treatment compliance and good apnea control with minimal elevation of residual AHI. On CPAP therapy, the patient has better sleep quality and is more rested overall. Patient has significant improvement of his sleep apnea although this slightly ineffective. He feels he is getting good therapy and is waking up feeling refreshed with good energy during the day. His AHI has reduced events since his last appointment. No changes needed today. We will follow up with him next year. Patient's apnea severity and rationale for treatment to reduce apnea, improve sleep quality and reduce cardiovascular and cerebrovascular events was reviewed. I also reviewed the benefit of consistent device use of CPAP for cardiac disease. 2. Overweight, unspecified. Currently patients BMI is 27.9. He has lost weight. Obesity increases the risk of apnea, CPAP pressure requirements and overall health risks especially cardiovascular and diabetes. Thus patient is advised to continue to try to lose weight. * Continue auto CPAP pressure at 11-12.6 cmH2O * Notify me if snoring with mask or feeling that the pressure is too much or too little * Continue to try to lose weight * Call this office if any problems using CPAP * Return for follow up in 12 months, or sooner if concerns arise Counseling Topics: Weight loss health impact Follow up with Sleep Care in: 1 year Visit Type: In Office Time Spent with Patient (minutes): 20 Provider Statement: I spent 100% of the Face to Face Visit with the patient with greater than 50% spent counseling the patient and coordination of care.
[2024-05-13 13:46] VITALS: BP 137/67; O2SAT 99
== END 2024-05-13 13:01 | disposition home or self-care (01) ==
LOC: SC 13:00
PROVIDERS: ATTEND Nurse Practitioner Family
DX: G47.33 Obstructive sleep apnea (adult) (pediatric) (principal); E66.3 Overweight; Z68.27 Body mass index [BMI] 27.0-27.9, adult
CPT/HCPCS: 99213; G0463; 99212